=== PATIENT | female | born 1970 | race Caucasian/White ===

== ENCOUNTER → 2021-02-15 12:34 | Outpatient (CLI) | payer MEDICAID, SELFPAY ==
--- NOTE | 2021-02-15 12:43 | VDLE_ITS ---
Reason For Study: Pain and swelling RIGHT LEFT GSV is normal. GSV is normal. CFV is compressible, spontaneous, phasic, CFV is compressible, spontaneous, phasic, competent and demonstrates normal competent, and demonstrates normal augmentation. augmentation. FV is compressible, spontaneous, phasic, FV is compressible, spontaneous, phasic, competent and demonstrates normal competent and demonstrates normal augmentation. augmentation. POP V is compressible, spontaneous, phasic, POP V is compressible, spontaneous, phasic, competent and demonstrates normal competent and demonstrates normal augmentation. augmentation. T/P Trunk is compressible. T/P Trunk is compressible. PTV is compressible. PTV is compressible. RT PerV is compressible. LT PerV is compressible. Procedure Lt SSV is non compressible at junction and Exam performed in department. proximal calf. A preliminary report was called and/or faxed to Dr. Crocker. Interpretation Summary No dvt noted bilaterally. Left LSV occluded. Ordering Physician: Hugh Crocker Referring Physician: Hugh Crocker Performed By: Rima Walls, SHAKA, RVT
== END ==
PROVIDERS: PCP Internal Medicine; Referring Provider Surgery Vascular Surgery; Visit Provider Surgery Vascular Surgery
DX: M79.606 Pain in leg, unspecified (principal); M79.89 Other specified soft tissue disorders; E11.9 Type 2 diabetes mellitus without complications; I82.90 Acute embolism and thrombosis of unspecified vein; Z95.828 Presence of other vascular implants and grafts
CPT/HCPCS: 93970

== ENCOUNTER 2021-03-04 09:24 | Day surgery (SDC) | payer MEDICAID, SELFPAY ==
[2021-03-03 10:27] VITALS: BMI 32.4
[2021-03-04 09:37] LABS: Hemoglobin 14.4 g/dL (12.0-15.0); Mean Corp Hgb Conc 33.5 g/dL (32-36); Mean Corpuscular Volume 86.7 fL (81-99); Mean Platelet Vol. 10.6 fl (6.2-12.0); Platelet Count 232 K/mm3 (150-450); RBC Distribution Width CV 12.2 % (11.6-14.6); RBC Distribution Width SD 38.7 fl (35.1-43.9); Red Blood Count 4.96 M/mm3 (4.2-5.4); White Blood Count 5.8 K/mm3 (4.4-11.0)
[2021-03-04 09:50] LABS: Albumin, Serum 3.6 g/dL (3.2-5.0); BUN 11 mg/dL (7-18); BUN/Creat Ratio 15.7 RATIO (10-20); Calcium,Total 8.9 mg/dL (8.5-10.1); Chloride 106 mmol/L (98-107); EST Glomerular Filtration Rate 95 mL/min (>60); Est Glom Filt Rate - Afr Amer 115 mL/min (>60); Estimated Creatinine Clearance 84.87 ml/min; Glucose 219 mg/dL (74-106); Phosphorus 3.3 mg/dL (2.5-4.9); Potassium 3.7 mmol/L (3.5-5.1); Sodium Level 138 mmol/L (136-145)
--- NOTE | 2021-03-04 12:38 | OP.PCM_ITS ---
Problem List (1) DVT (deep venous thrombosis) Status: Acute Report of Operation Date of Procedure: 03/04/21 Pre-Operative Diagnosis: History of DVT and IVC filter placement Post-Operative Diagnosis: Same Surgery/Procedure Performed:: 1. Ultrasound-guided access antegrade right jugular vein. 2. Inferior venacavogram. 3. Snare removal of IVC filter Type of Anesthesia:: Sedation,Conscious Description of Procedure: Patient brought to the Billing Customer Service Representative. Underwent the appropriate timeout consent. Underwent sedation. Prepped and draped in a sterile fashion. We did ultrasound-guided access antegrade right jugular vein. Put a Glidewire down and then the filter removal sheath. We brought this down to the level of the IVC filter. Did an inferior venacavogram showing good flow throughout the entire IVC filter. We are under fluoroscopic guidance able to snare the filter and remove it without any difficulty. Held pressure on the neck with good hemostasis. Brought to recovery stable condition Sedation: This 50-year-old female underwent moderate sedation given by Dr. Hugh Crocker. She was monitored with EKG blood pressure and pulse ox for over the 30 minutes of the procedure. See the EMR for the complete record.
== END 2021-03-04 14:45 | disposition home or self-care (01) ==
LOC: CLSP 09:26
PROVIDERS: PCP Internal Medicine; Referring Provider Surgery Vascular Surgery; Visit Provider Surgery Vascular Surgery
DX: Z86.718 Personal history of other venous thrombosis and embolism (principal); Z86.711 Personal history of pulmonary embolism; E11.9 Type 2 diabetes mellitus without complications; Z79.84 Long term (current) use of oral hypoglycemic drugs
CPT/HCPCS: 36415; 37193; 76937; 80069; 85027; 93005; 99152; C1773; J7040; Q9967; C1769